=== PATIENT | female | born 1960 | race Caucasian/White ===

== ENCOUNTER 2019-03-09 02:09 | Emergency (ER) | payer BC ==
[~2019-03-09] VITALS: Ht 152.4 cm; Wt 68.0 kg
[2019-03-09 02:12] VITALS: BP_SYST 115
--- NOTE | 2019-03-09 02:12 | NUR ---
Placed in room 2 . Placed on campus monitor, blood pressure machine and pulse oximeter. To gown for exam. Side rails up. Report given to Javier PAZ.
--- NOTE | 2019-03-09 02:13 | NUR ---
ER at bedside examining patient.
[2019-03-09] MEDS ORDERED: ONDANSETRON HCL 4 MG/2 ML VIAL IVP ONE ×2 (02:15→03:30)
--- NOTE | 2019-03-09 02:15 | NUR ---
Pt BIB family to ED C/O SOB with N/V. Pt states everything began l yesterday afternoon with a migraine headache. Initially the headache was mild so she took nayi-gyz-yqcaegl Motrin. Later still the headache turn into a full-blown migraine. She took a sumatriptan and and try to rest. Later in the evening before bedtime she took another dose of sumatriptan and tried to go to sleep. Indocin sumatriptan was at 10 PM. At around midnight she states she was having difficulty sleeping because of her migraine but that she began having shortness of breath. No other complaints and or injuries noted. VSS no s/s of acute distress. Resting on gurney with rails up
[2019-03-09] MEDS ORDERED: NACL 0.9% 1,000 ML IV ONE (02:30)
[2019-03-09] MEDS ORDERED: ALBUTEROL SULFATE 0.083% 2.5 MG/3 ML VIAL.NEB INH ONE ×2 (02:45→02:47)
[2019-03-09] MEDS ORDERED: IPRATROPIUM BROM 0.5 MG/2.5 ML VIAL.NEB (ATROVENT) INH ONE ×2 (02:45→02:47)
[2019-03-09 02:55] LABS: BASOPHILS % (AUTO) 0.4 % (0.0-2.0); EOSINOPHILS % (AUTO) 0.8 % (0.0-4.0); HEMATOCRIT 39.9 % (36-48); HEMOGLOBIN 13.5 g/dL (12.0-16.0); LYMPHOCYTES # (AUTO) 1.4 K/uL (1.0-5.5); LYMPHOCYTES % (AUTO) 22.7 % (20.5-51.5); MEAN CORPUSCULAR HEMOGLOBIN 32 pg (27-31); MEAN CORPUSCULAR HGB CONC 34 % (32-36); MEAN CORPUSCULAR VOLUME 93 fL (79.0-98.0); MONOCYTES # (AUTO) 0.2 K/uL (0.0-1.0); MONOCYTES % (AUTO) 2.6 % (1.7-9.3); NEUTROPHILS # (AUTO) 4.5 K/uL (1.8-7.7); NEUTROPHILS % (AUTO) 73.5 % (40.0-70.0); PLATELET COUNT (AUTO) 185 K/uL (130-430); RED BLOOD CELL COUNT(AUTO) 4.29 MIL/uL (4.2-6.2); RED CELL DISTRIBUTION WIDTH 13.3 % (9.0-15.0); WHITE BLOOD COUNT (AUTO) 6.1 K/uL (4.8-10.8)
--- NOTE | 2019-03-09 03:05 | NUR ---
VSS no s/s of acute distress. Resting on gurney rails up
[2019-03-09 03:12] LABS: CALCIUM 9.3 mg/dL (8.4-11.0); CREATININE 0.94 mg/dL (0.55-1.30); POTASSIUM 3.7 mmol/L (3.5-5.1)
[2019-03-09 03:17] LABS: ALBUMIN 3.5 g/dL (3.4-4.8); TOTAL BILIRUBIN 0.4 mg/dL (0.0-1.0)
--- NOTE | 2019-03-09 04:00 | NUR ---
Dr. Bender aware and has ordered 2nd dose of zofran for Pt's still moderate nausea
[2019-03-09 04:30] VITALS: BP_SYST 116
--- NOTE | 2019-03-09 04:30 | NUR ---
Patient given written and verbal discharge instructions and verbalizes understanding. ER MD discussed with patient the results and treatment provided. Patient in stable condition. ID arm band removed. IV catheter removed intact and dressing applied, no active bleeding. Patient educated on pain management and to follow up with PMD. Pain Scale 0/10 Opportunity for questions provided and answered.
== END 2019-03-09 04:30 | disposition home or self-care (01) ==
LOC: SED 02:09
DX: G43.909 Migraine, unspecified, not intractable, without status migrainosus (principal); R06.02 Shortness of breath
CPT/HCPCS: 36415; 36600; 70450; 71045; 80053; 80061; 82550; 82803; 83880; 84484; 85025; 93005; 94640; 96361; 96374; 96376; 99284; J2405; J7030; J7613

== ENCOUNTER 2022-04-05 07:49 | Outpatient (CLI) | payer OTHER ==
[2022-04-05 08:18] LABS: BASOPHILS % (AUTO) 0.7 % (0.0-2.0); EOSINOPHILS # (AUTO) 0.2 K/uL (0.0-0.4); EOSINOPHILS % (AUTO) 5.3 % (0.0-4.0); HEMATOCRIT 40.1 % (36-48); LYMPHOCYTES # (AUTO) 1.7 K/uL (1.0-5.5); MEAN CORPUSCULAR VOLUME 92 fL (79.0-98.0); MONOCYTES # (AUTO) 0.3 K/uL (0.0-1.0); MONOCYTES % (AUTO) 5.8 % (1.7-9.3); NEUTROPHILS # (AUTO) 2.4 K/uL (1.8-7.7); NEUTROPHILS % (AUTO) 52.2 % (40.0-70.0); PLATELET COUNT (AUTO) 192 K/uL (130-430); RED BLOOD CELL COUNT(AUTO) 4.37 MIL/uL (4.2-6.2); RED CELL DISTRIBUTION WIDTH 13.7 % (9.0-15.0); WHITE BLOOD COUNT (AUTO) 4.7 K/uL (4.8-10.8)
[2022-04-05 08:40] LABS: ALBUMIN 3.3 g/dL (3.4-4.8); CALCIUM 9.1 mg/dL (8.4-11.0); POTASSIUM 4.3 mmol/L (3.5-5.1); THYROID STIMULATING HORMONE 2.13 uIu/mL (0.36-3.74); TOTAL BILIRUBIN 0.5 mg/dL (0.0-1.0)
[2022-04-09 08:53] LABS: HEMOGLOBIN A1C 6.6 % (4.8-5.6)
== END 2022-04-05 17:30 | disposition home or self-care (01) ==
LOC: SLB 07:49
PROVIDERS: ATTEND Internal Medicine
DX: Z00.00 Encounter for general adult medical examination without abnormal findings (principal); Z13.220 Encounter for screening for lipoid disorders; E55.9 Vitamin D deficiency, unspecified
CPT/HCPCS: 36415; 80053; 80061; 82306; 83036; 84443; 85025

== ENCOUNTER 2022-06-20 14:56 | Outpatient (CLI) | payer OTHER | END 2022-06-20 20:30 | disposition home or self-care (01) | LOC: SRD 14:56 | PROVIDERS: ATTEND Internal Medicine | DX: Z12.31 Encounter for screening mammogram for malignant neoplasm of breast (principal) | CPT/HCPCS: 77067 ==

== ENCOUNTER 2022-09-13 08:31 | Outpatient (CLI) | payer OTHER ==
[2022-09-13 09:28] LABS: ALBUMIN 3.1 g/dL (3.4-4.8); BILIRUBIN,DIRECT 0.1 mg/dL (0.0-0.3); TOTAL BILIRUBIN 0.5 mg/dL (0.0-1.0)
== END 2022-09-14 20:05 | disposition home or self-care (01) ==
LOC: SLB 08:31
PROVIDERS: ATTEND Internal Medicine
DX: E11.9 Type 2 diabetes mellitus without complications (principal); E55.9 Vitamin D deficiency, unspecified; E78.00 Pure hypercholesterolemia, unspecified; K76.0 Fatty (change of) liver, not elsewhere classified
CPT/HCPCS: 36415; 80061; 80076; 82306; 83037

== ENCOUNTER 2022-12-27 08:57 | Outpatient (CLI) | payer OTHER ==
[2022-12-27 09:48] LABS: ALBUMIN 3.4 g/dL (3.4-4.8); BILIRUBIN,DIRECT 0.1 mg/dL (0.0-0.3); TOTAL BILIRUBIN 0.5 mg/dL (0.0-1.0)
== END 2022-12-27 19:07 | disposition home or self-care (01) ==
LOC: SLB 08:57
PROVIDERS: ATTEND Pathology Anatomic Pathology & Clinical Pathology
DX: E11.9 Type 2 diabetes mellitus without complications (principal); E78.00 Pure hypercholesterolemia, unspecified
CPT/HCPCS: 36415; 80061; 80076; 82306; 83037

== ENCOUNTER 2023-09-02 18:06 | Emergency (ER) | payer OTHER ==
[~2023-09-02] VITALS: Ht 152.4 cm; Wt 68.0 kg
[~2023-09-02 18:06] MED LIST: FEXO180T94 PO; MED4 PO
[2023-09-02 18:30] VITALS: BP_SYST 144; PULSE 99; RESP 18; TEMP 97.8; O2SAT 96
[2023-09-02] MEDS ORDERED: NAPR-1172 PO (19:06)
[2023-09-02] MEDS ORDERED: PHEDM120 PO (19:06)
[2023-09-02 19:37] VITALS: BP_SYST 132; PULSE 82; RESP 16; TEMP 97.8; O2SAT 98
[2023-09-02 20:04] LABS: INFLUENZA TYPE A Negative (NEGATIVE); INFLUENZA TYPE B NEGATIVE (NEGATIVE)
[2023-09-02 20:12] LABS: COVID19 ANTIGEN SOFIA FIA NEGATIVE (NEGATIVE)
== END 2023-09-02 19:37 | disposition home or self-care (01) ==
LOC: SED 18:06
DX: J06.9 Acute upper respiratory infection, unspecified (principal); R05.9 Cough, unspecified; J02.9 Acute pharyngitis, unspecified; E11.9 Type 2 diabetes mellitus without complications; I10 Essential (primary) hypertension; E78.5 Hyperlipidemia, unspecified; Z79.899 Other long term (current) drug therapy; Z20.822 Contact with and (suspected) exposure to COVID-19
CPT/HCPCS: 36415; 99283

== ENCOUNTER 2023-09-20 07:16 | Emergency (ER) | payer OTHER ==
[~2023-09-20] VITALS: Ht 154.9 cm; Wt 68.5 kg
[~2023-09-20 07:16] MED LIST changes: +NAPR-1172 PO; +PHEDM120 PO
[2023-09-20 08:03] VITALS: BP_SYST 125; PULSE 88; RESP 16; TEMP 97.2; O2SAT 95
[2023-09-20] MEDS ORDERED: BENZ100C92 PO (08:14)
[2023-09-20] MEDS ORDERED: ACET-2634 PO (08:14)
[2023-09-20] MEDS: KETOROLAC TROMETHAMINE 15 MG VIAL IM ONE (08:22)
[2023-09-20 08:37] VITALS: BP_SYST 125; PULSE 88; RESP 16; TEMP 97.2; O2SAT 95
== END 2023-09-20 08:34 | disposition home or self-care (01) ==
LOC: SED 07:16
DX: J06.9 Acute upper respiratory infection, unspecified (principal); R05.9 Cough, unspecified; E11.9 Type 2 diabetes mellitus without complications; I10 Essential (primary) hypertension; E78.5 Hyperlipidemia, unspecified; Z79.899 Other long term (current) drug therapy
CPT/HCPCS: 99283; 71045; 96372; J1885

== ENCOUNTER 2023-09-25 18:03 | Emergency (ER) | payer OTHER ==
[~2023-09-25] VITALS: Ht 154.9 cm; Wt 68.5 kg
[~2023-09-25 18:03] MED LIST changes: +ACET-2634 PO; +BENZ100C92 PO
[2023-09-25 18:05] VITALS: BP_SYST 126; PULSE 89; RESP 18; TEMP 98.1; O2SAT 99
[2023-09-25] MEDS ORDERED: PRED20TA PO (19:29)
[2023-09-25] MEDS ORDERED: ZIT250 PO (19:29)
[2023-09-25] MEDS ORDERED: GUAI120L56 PO (19:29)
[2023-09-26] MEDS ORDERED: ALBMDI INH (21:48)
== END 2023-09-25 19:39 | disposition home or self-care (01) ==
LOC: SED 18:03
DX: J40 Bronchitis, not specified as acute or chronic (principal); I10 Essential (primary) hypertension; E11.9 Type 2 diabetes mellitus without complications; E78.5 Hyperlipidemia, unspecified
CPT/HCPCS: 71045; 99283

== ENCOUNTER 2023-09-26 18:47 | Emergency (ER) | payer OTHER ==
[~2023-09-26] VITALS: Ht 154.9 cm; Wt 68.5 kg
[~2023-09-26 18:47] MED LIST changes: +GUAI120L56 PO; +PRED20TA PO; +ZIT250 PO
[2023-09-26] MEDS: IPRATROPIUM/ALBUTEROL SULFATE 3 ML AMPUL.NEB (DUONEB) INH ONE (19:04)
[2023-09-26 19:05] VITALS: BP_SYST 139; PULSE 99; RESP 18; TEMP 97.2; O2SAT 99
[2023-09-26] MEDS: methylPREDNISolone SOD SUCC/PF 62.5 MG/ML VIAL IVP ONE (19:58)
[2023-09-26 20:00] LABS: BASOPHILS % (AUTO) 0.1 % (0.0-2.0); HEMATOCRIT 38.5 % (36-48); HEMOGLOBIN 13.3 g/dL (12.0-16.0); LYMPHOCYTES # (AUTO) 1.3 K/uL (1.0-5.5); LYMPHOCYTES % (AUTO) 15.3 % (20.5-51.5); MEAN CORPUSCULAR HEMOGLOBIN 32 pg (27-31); MEAN CORPUSCULAR HGB CONC 35 % (32-36); MEAN CORPUSCULAR VOLUME 93 fL (79.0-98.0); MONOCYTES # (AUTO) 0.2 K/uL (0.0-1.0); MONOCYTES % (AUTO) 2.3 % (1.7-9.3); NEUTROPHILS % (AUTO) 82.3 % (40.0-70.0); PLATELET COUNT (AUTO) 219 K/uL (130-430); RED BLOOD CELL COUNT(AUTO) 4.15 MIL/uL (4.2-6.2); RED CELL DISTRIBUTION WIDTH 13.8 % (9.0-15.0); WHITE BLOOD COUNT (AUTO) 8.5 K/uL (4.8-10.8)
[2023-09-26] MEDS ORDERED: ONDANSETRON HCL 4 MG/2 ML VIAL ONE (20:05)
[2023-09-26 20:08] LABS: ANION GAP 17 (5-15); CALCIUM 9.6 mg/dL (8.4-11.0); CARBON DIOXIDE 22 mmol/L (23-29); CHLORIDE 102 mmol/L (98-107); CREATININE 0.85 mg/dL (0.55-1.30); GFR AFRICAN AMERICAN 87 mL/min (>90); GLUCOSE 166 mg/dL (74-106); POTASSIUM 3.9 mmol/L (3.5-5.1); SODIUM SERUM 141 mmol/L (136-145); UREA NITROGEN, BLOOD 12 mg/dL (8-21)
[2023-09-26 20:09] LABS: GFR NON AFRICAN-AMERICAN 72 mL/min (>90)
[2023-09-26 20:15] LABS: ALANINE AMINOTRANSFERASE 96 U/L (12-78); ALBUMIN 3.8 g/dL (3.4-4.8); ASPARTATE AMINOTRANSFERASE 68 U/L (10-37); BILIRUBIN,DIRECT 0.1 mg/dL (0.0-0.3); TOTAL BILIRUBIN 0.5 mg/dL (0.0-1.0); TOTAL PROTEIN, SERUM 8.1 g/dL (6.4-8.3)
[2023-09-26 20:16] LABS: PROTHROMBIN TIME 10.3 SECS (9.5-12.5)
[2023-09-26] MEDS ORDERED: ACETAMINOPHEN 500 MG TABLET ONE (21:12)
[2023-09-26] MEDS ORDERED: ALBMDI INH (21:48)
[2023-09-26 22:05] VITALS: BP_SYST 130; PULSE 61; RESP 16; TEMP 98.4; O2SAT 97
[2023-09-27] MEDS: ONDANSETRON HCL 4 MG/2 ML VIAL IVP ONE (00:38)
[2023-09-27] MEDS: ACETAMINOPHEN 500 MG TABLET PO ONE (00:39)
== END 2023-09-26 22:05 | disposition home or self-care (01) ==
LOC: SED 18:47
DX: R06.00 Dyspnea, unspecified (principal); F41.9 Anxiety disorder, unspecified; E11.65 Type 2 diabetes mellitus with hyperglycemia; R73.9 Hyperglycemia, unspecified; I10 Essential (primary) hypertension; E78.5 Hyperlipidemia, unspecified; Z79.899 Other long term (current) drug therapy
CPT/HCPCS: 99285; 96374; 71045; 96375; 80076; 80048; 83880; 85025; 85379; 85610; 85730; 84484; 36415; 93005; J2405; J2930